=== PATIENT | female | born 1980 | race American Indian/Alaskan Native ===

== ENCOUNTER 2017-03-22 06:51 | Emergency (ER) | payer MEDICARE ==
[2017-03-22 07:52] LABS: Basophils % (Auto) 0.4 % (0.0-1.8); Eosinophils % (Auto) 1.7 % (0.0-4.3); Hemoglobin 13.3 gm/dl (10.1-14.3); Mean Corpuscular HGB Conc 34 % (30-34); Mean Corpuscular Hemoglobin 29 pg (28-32); Mean Corpuscular Volume 85 fl (79-97); Platelet Count 362 K/mm3 (140-440); Red Cell Distribution Width 13.1 % (13.2-15.2); White Blood Count 8.9 K/mm3 (4.5-11.0)
[2017-03-22 08:13] LABS: Anion Gap 19 mmol/L; BUN/Creatinine Ratio 20; Blood Urea Nitrogen 8 mg/dL (7-17); Calcium 9.2 mg/dL (8.4-10.2); Carbon Dioxide 23 mmol/L (22-30); Glucose 127 mg/dL (65-100); Potassium 3.1 mmol/L (3.6-5.0); Sodium 140 mmol/L (137-145)
[2017-03-22] MEDS ORDERED: K-DUR PO ONE (12:53)
[2017-03-22] MEDS ORDERED: NACL 0.9% 1000 ML 1,000 ML IV ONE (13:04)
[2017-03-22] MEDS ORDERED: ATIVAN IV ONE (13:04)
--- NOTE | 2017-03-22 13:08 | Emergency Department Report ---
HPI - General Chief Complaint: Arrhythmia/Palpitations Time Seen by Provider: 03/22/17 12:52 - HPI HPI: This is a 37 year-old female presents to the emergency department, driving herself and to be seen with her daughter at bedside, with a complaint of anxiety. The patient says that she found out that a friend of hers had recently when she noticed this on social media and she began feeling sad and anxious. Because of this, she had concern for her blood pressure and went to the local fire department and had the blood pressure checked and found it to be 160/90. Patient has a history of hypertension and is compliant with medications and therefore this elevated blood pressure made her more anxious. She is on hydrochlorothiazide 25 mg daily and she contacted her PCP to tell them about the hypertension and says she was prescribed clonidine. She has some fear of taking the clonidine based on things other people have said and therefore never took it, and instead was prescribed hydralazine 50 mg. She is on clonazepam 1 mg for her anxiety, prescribed by her psychiatrist, Dr. Guerra, but does not think that it has been working as she is quite anxious despite taking these medications. She denies any chest pain, palpitations, shortness of breath, fever, headache, nausea or vomiting. She denies any tobacco, illicit drug use or alcohol abuse. ED Past Medical Hx - Past Medical History Previous Medical History?: Yes Hx Hypertension: Yes Hx Psychiatric Treatment: Yes Additional medical history: anxiety - Surgical History Past Surgical History?: Yes Additional Surgical History: - Social History Smoking Status: Never Smoker Substance Use Type: None - Medications Home Medications: Home Medications Medication Instructions Recorded Confirmed Last Taken Type Hydrochlorothiazide [HCTZ] 25 mg PO QDAY 01/23/15 01/23/15 Unknown History Nitrofurantoin [place]/M-Cryst 100 mg PO Q12HR #14 capsule 01/23/15 Unknown Rx [Macrobid CAP] ALPRAZolam [Xanax TAB] 0.5 mg PO TID PRN #12 tab 03/22/17 Unknown Rx ED Review of Systems ROS: Stated complaint: ELEVATED BP Other details as noted in HPI Comment: All other systems reviewed and negative Constitutional: denies: chills, fever Eyes: denies: eye pain, eye discharge, vision change ENT: denies: ear pain, throat pain Respiratory: denies: cough, shortness of breath, wheezing Cardiovascular: denies: chest pain, palpitations Gastrointestinal: denies: abdominal pain, nausea, diarrhea Genitourinary: denies: urgency, dysuria, discharge Musculoskeletal: denies: back pain, joint swelling, arthralgia Skin: denies: rash, lesions Neurological: denies: headache, weakness, paresthesias Psychiatric: anxiety Physical Exam - Physical Exam Vital Signs: Vital Signs 03/22/17 03/22/17 03/22/17 07:02 09:20 11:30 Temperature 98 F 99.5 F 98.3 F Pulse Rate 137 H 118 H 116 H Respiratory 24 18 20 Rate Blood Pressure 172/86 145/87 Blood Pressure 147/76 [Left] O2 Sat by Pulse 99 100 100 Oximetry Physical Exam: GENERAL: The patient is well-developed well-nourished. HENT: Normocephalic. Atraumatic. Patient has moist mucous membranes. EYES: Extraocular motions are intact. Pupils equal reactive to light bilaterally. NECK: Supple. Trachea is midline. CHEST/LUNGS: Clear to auscultation. There is no respiratory distress noted. HEART/CARDIOVASCULAR: Regular. There is mild tachycardia. There is no gallop rub or murmur. ABDOMEN: Abdomen is soft, nontender. Patient has normal bowel sounds. There is no abdominal distention. Obese habitus. SKIN: Skin is warm and dry. NEURO: The patient is awake, alert, and oriented. The patient is cooperative. The patient has no focal neurologic deficits. The patient has normal speech. Cranial nerves II through XII grossly intact. MUSCULOSKELETAL: There is no tenderness or deformity. There is no limitation range of motion. There is no evidence of acute injury. ED Course Vital Signs 03/22/17 03/22/17 03/22/17 07:02 09:20 11:30 Temperature 98 F 99.5 F 98.3 F Pulse Rate 137 H 118 H 116 H Respiratory 24 18 20 Rate Blood Pressure 172/86 145/87 Blood Pressure 147/76 [Left] O2 Sat by Pulse 99 100 100 Oximetry ED Medical Decision Making - Lab Data Result diagrams: 03/22/17 07:20 03/22/17 07:20 - EKG Data -: EKG Interpreted by [facility] EKG shows normal: sinus rhythm, axis, intervals, QRS complexes, ST-T waves Rate: tachycardia (140 bpm) - EKG Data When compared to previous EKG there are: previous EKG unavailable Interpretation: other (Sinus Tachycardia) - Medical Decision Making 37-year-old female presents with what appears to be severe anxiety. She denies any palpitations, chest pain, shortness of breath. She is seen by a psychiatrist and on medications for anxiety. Even when talking to her in the emergency department, he did see some elevation in her heart rate with visible anxiety based on things that we are talking about. Her labs are unremarkable including no signs of infection, the patient is not and she has normal thyroid function. There is some mild hypokalemia with potassium of 3.1 that was replaced with potassium chloride. She had some IV fluid and was given a low -dose of Ativan. She was reevaluated multiple times of her multiple hours and is feeling improved. Her heart rate has come down to a normal level. Her blood pressure, which was a cause of anxiety from her earlier, has come down to a normal level as well. She is currently symptomatically. She has good follow- up with primary care and psychiatry. She has different blood pressure medications to take if there is a elevation in her blood pressure and we discussed dietary and lifestyle changes. She will stop taking the Klonopin and I have started her on Xanax and she will see her psychiatrist this coming Friday or Friday. She will return to the ER with any worsening of her symptoms or any acute distress. While her EKG did show moderate tachycardia, there is no dysrhythmia or signs of ST elevation NV. The patient was given discharge instructions while in the emergency department and all questions have been answered. - Differential Diagnosis anxiety/panic disorder, hypothyroidism, Critical Care Time: No Critical care attestation.: If time is entered above; I have spent that time in minutes in the direct care of this critically ill patient, excluding procedure time. ED Disposition Clinical Impression: Anxiety, Hypokalemia Disposition: DC-01 TO HOME OR SELFCARE Is pt being admited?: No Condition: Stable Instructions: Hypokalemia (ED), Generalized Anxiety Disorder (ED), Panic Disorder (ED) Additional Instructions: Please follow-up with your primary care physician and psychiatrist in the next few days if possible. Return to the emergency Department with any worsening of your symptoms or any acute distress. I'm starting you on a different anxiety medication. Please stop the Klonopin. I am prescribing you Xanax. This medication can be sedating and therefore should not be taken prior to driving, working, being responsible for children and cannot be mixed with any amount of alcohol. Prescriptions: ALPRAZolam [Xanax TAB] 0.5 mg PO TID PRN #12 tab PRN Reason: Anxiety Referrals: INDY LYNN MD [Referring] - JORGE ALBERTO MERRICK HENRIQUEZ NP [Primary Care Provider] - JORGE ALBERTO Time of Disposition: 14:23
[2017-03-22 14:24] VITALS: BP 132/72
[2017-03-22] MEDS ORDERED: TYLENOL PO ONE (14:25)
[2017-03-22] MEDS ORDERED: TYLENOL ONE (14:30)
== END 2017-03-22 14:37 | disposition home or self-care (01) ==
LOC: ED 06:51
DX: F41.9 Anxiety disorder, unspecified (principal); E87.6 Hypokalemia; I10 Essential (primary) hypertension
CPT/HCPCS: 36415; 80048; 84443; 84484; 85025; 93005; 93010; 96361; 96374; 99284; J2060; J7030

== ENCOUNTER 2017-03-25 06:06 | Day surgery (SDC) | payer MEDICARE ==
[2017-03-25] MEDS ORDERED: DIPRIVAN 10 MG/ML IV ONE (07:38)
[2017-03-25] MEDS ORDERED: NACL 0.9% 1000 ML 1,000 ML IV SCH (08:00)
--- NOTE | 2017-03-25 08:02 | Anesthesia Consultation ---
Anesthesia Consult and Med Hx Date of service: 03/25/17 - Airway Anesthetic Teeth Evaluation: Bridges (upper) ROM Head & Neck: Adequate Mental/Hyoid Distance: Adequate Mallampati Class: Class II Intubation Access Assessment: Probably Good - Pulmonary Exam CTA: Yes - Cardiac Exam Cardiac Exam: RRR - Pre-Operative Health Status ASA Pre-Surgery Classification: ASA3 Proposed Anesthetic Plan: MAC - Pulmonary Hx Asthma: Yes - Cardiovascular System Hx Hypertension: Yes - Central Nervous System Hx Psychiatric Problems: Yes (anxiety) - Other Systems Hx Obesity: Yes - Additional Comments Anesthesia Medical History Comments: NAC
--- NOTE | 2017-03-25 08:02 | Anesthesia Day of Surgery ---
Anesthesia Day of Surgery - Day of Surgery Patient Examined: Yes Patient H&P Reviewed: Yes Patient is NPO: Yes
[2017-03-25] MEDS ORDERED: SUBLIMAZE ONE (08:22)
--- NOTE | 2017-03-25 08:56 | Operative Report ---
Operative Report Operative Report: OPERATIVE REPORT - EGD DATE 03/25/17 SURGERY: Upper endoscopy. SURGEON: Dr. Micheal M.D. CONSUMER BANKER: Zackary Truong DO PRE OP DX: dyspepsia POST OP DX: small hiatal hernia TYPE OF ANESTHESIA: MAC. ESTIMATED BLOOD LOSS: None. COMPLICATIONS: None. SPECIMENS REMOVED: None. FINDINGS: 1. Small hiatal hernia. 2. Otherwise, normal esophagus, stomach and first portion of duodenum. INDICATIONS:INDICATION FOR PROCEDURE: Patient is a 37-year-old female with a long history of morbid obesity. She is planned to have a weight loss procedure and is here for preoperative planning EGD to ensure there are no anatomical abnormalities. PROCEDURE DETAILS: After consent was reviewed, patient was taken back to the operating room where patient was placed in the left lateral decubitus position and a bite block was placed in the mouth. After a time-out was called, MAC anesthesia was initiated. I then passed the endoscope into her oropharynx, into her esophagus, visualized the entire esophagus, which was all within normal limits. I then visualized the stomach and the first portion of the duodenum and there were no abnormalities I could clearly visualize. I then retroflexed the scope in the stomach and visualized the hiatus and I could see a small hiatal hernia. I then desufflated the stomach and removed the endoscope. Patient tolerated procedure well and was transferred to recovery room in good and stable condition.
[2017-03-25] MEDS ORDERED: WATER FOR IRRIG STERILE IR ONE (08:57)
--- NOTE | 2017-03-25 09:00 | Discharge Summary ---
Providers - Providers Attending physician: MARY VERDIN Hospitalization Procedures: egd Hospital course: 37 y.o. F with hx of dyspepsia, presented to endoscopy for egd. she tolerated the procedure well. Disposition: DC-01 TO HOME OR SELFCARE Core Measure Documentation - Palliative Care Palliative Care/ Comfort Measures: Not Applicable - Core Measures Any of the following diagnoses?: none Exam - Physical Exam Narrative exam: no change from prior - Constitutional Vitals: Temp Pulse Resp BP Pulse Ox 98.6 F 107 H 12 130/62 98 03/25/17 08:43 03/25/17 08:43 03/25/17 08:43 03/25/17 08:43 03/25/17 08:43 Plan Additional Instructions: follow up for surgery
[2017-03-25 09:21] VITALS: BP 120/70
--- NOTE | 2017-03-25 09:32 | Post Anesthesia Evaluation ---
- Post Anesthesia Evaluation Patient Participated: Yes Airway Patent: Yes Stable Respiratory Function: Yes Nausea/Vomiting: No Temp > 96.8F: Yes Pain Manageable: Yes Adequeate Hydration: Yes Anesthesia Complications: No
== END 2017-03-25 06:07 | disposition home or self-care (01) ==
LOC: GIO 06:06
PROVIDERS: ATTEND Specialist
DX: K30 Functional dyspepsia (principal); K44.9 Diaphragmatic hernia without obstruction or gangrene; I10 Essential (primary) hypertension; K21.9 Gastro-esophageal reflux disease without esophagitis; G47.33 Obstructive sleep apnea (adult) (pediatric); E66.01 Morbid (severe) obesity due to excess calories; F41.9 Anxiety disorder, unspecified; F32.9 Major depressive disorder, single episode, unspecified; Z68.41 Body mass index [BMI] 40.0-44.9, adult; Z79.899 Other long term (current) drug therapy; Z85.820 Personal history of malignant melanoma of skin; Z98.890 Other specified postprocedural states; Z99.89 Dependence on other enabling machines and devices
CPT/HCPCS: 43235; 81025; J2704; J3010; J7030

== ENCOUNTER 2018-11-15 21:22 | Emergency (ER) | payer MEDICARE ==
[2018-11-15 21:45] VITALS: BP 177/96
--- NOTE | 2018-11-15 21:45 | Event Note ---
ED Screening Note Date of service: 11/15/18 Time: 21:41 ED Screening Note: This is a 38 y.o. F. that presents to the ER feeling anxious after eating sugar. Patient reports history of anxiety and HTN. She is currently taking diet pills. Patient states she had gastric sleeve surgery in 2017 and started gaining weight. Reports palpitations. LMP 11/15/2018 This initial assessment/diagnostic orders/clinical plan/treatment(s) is/are subject to change based on patients health status, clinical progression and re- assessment by fellow clinical providers in the ED. Further treatment and workup at subsequent clinical providers discretion. Patient/guardian urged not to elope from the ED as their condition may be serious if not clinically assessed and managed. Initial orders include: EKG and labs
== END 2018-11-15 22:15 | disposition left against medical advice (07) ==
LOC: ED 21:22
DX: F41.9 Anxiety disorder, unspecified (principal); Z53.21 Procedure and treatment not carried out due to patient leaving prior to being seen by health care provider
CPT/HCPCS: 93005; 93010